=== PATIENT | male | born 2000 | race Two or more races ===

== ENCOUNTER 2022-12-26 08:07 | Emergency (ER) | payer OTHER ==
[~2022-12-26] VITALS: Ht 188 cm; Wt 60.3 kg
[2022-12-26] MEDS ORDERED: TETANUS-DIPTH-ACEL PERTUSSIS 0.5ML SYR Tdap IM ONE (10:30)
[2022-12-26 10:51] VITALS: BP 120/80; PULSE 75; RESP 18; O2SAT 98
== END 2022-12-26 10:53 | disposition home or self-care (01) ==
LOC: ER 08:07
DX: S60.312A Abrasion of left thumb, initial encounter (principal); W26.8XXA Contact with other sharp object(s), not elsewhere classified, initial encounter; Y93.89 Activity, other specified; Y92.89 Other specified places as the place of occurrence of the external cause; Y99.8 Other external cause status
CPT/HCPCS: 90471; 90715